=== PATIENT | female | born 1970 ===

== ENCOUNTER → 2022-09-24 06:00 | Outpatient (CLI) | payer OTHER ==
[~2022-09-24] VITALS: Ht 157.5 cm; Wt 68.5 kg
[~2022-09-24 06:00] MED LIST: ACETAMINOPHEN500 M2 PO; DOXE PO; DOXEPIN HCL50 MG; ESTRA PO; ESTRADIOL0.5 MG; GABAPENTIN600 MG; INTESTINEX680 M1 PO; LEVSIN0.125 MG PO; MIRALAX17 GM PO; NEURONTIN300 MG PO; OLANZAPINE5 MG; SIMVASTATIN20 MG PO; VALACYCLOVIR500 MG; WELLBUTRIN XL300 MG PO
== END | disposition home or self-care (01) ==
LOC: LAB 06:00 → SURH 09-29 07:00 → EDSTATUS 09-29 11:30
PROVIDERS: ATTEND Colon & Rectal Surgery
DX: I10 Essential (primary) hypertension (principal); K57.32 Diverticulitis of large intestine without perforation or abscess without bleeding; Z20.822 Contact with and (suspected) exposure to COVID-19; Z03.818 Encounter for observation for suspected exposure to other biological agents ruled out

== ENCOUNTER 2022-11-03 12:30 | Inpatient (IN) | payer OTHER ==
[~2022-11-03] VITALS: Ht 157.5 cm; Wt 68.0 kg
[~2022-11-03 12:30] MED LIST changes: -ACETAMINOPHEN500 M2 PO; -DOXEPIN HCL50 MG; -ESTRADIOL0.5 MG; -GABAPENTIN600 MG; -INTESTINEX680 M1 PO; -LEVSIN0.125 MG PO; -MIRALAX17 GM PO; -NEURONTIN300 MG PO; -OLANZAPINE5 MG; -VALACYCLOVIR500 MG
[2022-11-11] MEDS ORDERED: GABAPENTIN600 MG (08:38)
[2022-11-11] MEDS ORDERED: OLANZAPINE5 MG (08:38)
[2022-11-11] MEDS ORDERED: VALACYCLOVIR500 MG (08:39)
[2022-11-11] MEDS ORDERED: ESTRADIOL0.5 MG (08:39)
[2022-11-11] MEDS ORDERED: DOXEPIN HCL50 MG (08:40)
[2022-11-12] MEDS ORDERED: LEVSIN0.125 MG PO (11:12)
[2022-11-12] MEDS ORDERED: ACETAMINOPHEN500 M2 PO (11:13)
[2022-11-12] MEDS ORDERED: INTESTINEX680 M1 PO (11:13)
[2022-11-12] MEDS ORDERED: MIRALAX17 GM PO (11:14)
[2022-11-12] MEDS ORDERED: NEURONTIN300 MG PO (11:14)
== END 2022-11-12 11:59 | disposition home or self-care (01) | DRG 331 ==
LOC: O/R 11-10 06:00 → SURG 11-10 10:45 → SURH 11-10 14:19
PROVIDERS: ADMIT Colon & Rectal Surgery; ATTEND Colon & Rectal Surgery
PROC: 0DJD8ZZ Inspection of Lower Intestinal Tract, Via Natural or Artificial Opening Endoscopic (ICD-10-PCS; 2022-11-10)
PROC: 0DTN4ZZ Resection of Sigmoid Colon, Percutaneous Endoscopic Approach (ICD-10-PCS; principal; 2022-11-10 10:45)
DX: K57.20 Diverticulitis of large intestine with perforation and abscess without bleeding (principal)